=== PATIENT | female | born 1985 ===

== ENCOUNTER 2018-06-13 11:44 | Emergency (ER) | payer SELFPAY ==
[2018-06-13 13:50] LABS: SQUAMOUS EPITHIAL 1 /hpf (0-5); URINE BACTERIA OCC (<OCC); URINE BILIRUBIN NEGATIVE (NEGATIVE); URINE BLOOD NEGATIVE (NEGATIVE); URINE CLARITY Clear (Clear); URINE COLOR Straw (YELLOW); URINE GLUCOSE (UA) NORMAL (Normal); URINE LEUKOCYTE ESTERASE TRACE Leu/uL (Negative); URINE PROTEIN NEGATIVE (NEGATIVE); URINE UROBILINOGEN NORMAL mg/dL (0.2-1.0)
[2018-06-13 19:19] VITALS: BP 103/67; PULSE 81; RESP 20; TEMP 97.4
--- NOTE | 2018-06-14 08:20 | OBHP ---
Datetime: 06/13/2018 13:24 IP Chief Complaint Other: vaginal discharge, lower abdominal pain IP Adm Impression Other: yeast infection IP Admit Plan: Discharge home Admit Comment, IP Provider: Patient is vietnamese speaking, translation service provided by Lesley ID#[id number] . 33 year old female presents at 25.1 weeks gestation dated by LMP on 12/22/17. BRITTANIE is 09/28/18 . Patient presents for intermittent lower abdominal pain and vaginal pain that began 3-4 days ago. Pa in worsens with movement. Assoicated symptoms include vaginal itching and foul smelling, thick white discharge. She reports adequate movement. Denies vaginal bleeding, contractions, and rupture of membranes. She also mentions mild shortness of breath when lying down on her back at night for the p ast week. Shortness of breath improves with sitting up. Patient denies fever, chills, nausea, vomitin g, vaginal burning, urinary frequncy, dysuria, abdominal trauma, RUQ pain, chest pain, swelling. OB Hx:2017 in [place]- 6lb female by Csection due to oligohydramnios. No further complications re ported. 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 Denies previous pap. Denies hx of STD. Denies hx of fibroid or cysts. Reports sexually active during . PMHx: Thyroid cyst (removed) PSHx: 2016, Thyroid cyst removal 2006 Meds: none, previously taking vitamins but ran out Allergies: NKDA Family: Denies Social: Moved from [place] on May 23. Has not had PNC since moving to the [facility]. A_P: 33 year old female presents at 25.1 weeks gestation dated by LMP on 12/22/17 presents for v aginal discharge and lower abdominal pain. -UA -Vaginal culture -monitor FHT -discharge Dispo: Yeast infection, patient discharged with prescription for diflucan. Case discussed with Dr. Rubalcava. Ceci Yoder, PGY-1. Extremities - PN: Abnormal Abdomen - PN: Normal Back - PN: Normal Lungs - PN: Normal Heart - PN: Normal Neurologic - PN: Normal HEENT - PN: Normal FHR - Baseline A Provider: 150 Contraction Comments Provider: none Comments, ACOG Physical Exam: Heart: RRR, Normal S1, S2, No M/R/G Lungs: clear to auscultation bilaterally Abdomen: Non-tender, uterine fundus is at 20cm. Extremities: Trace LE pitting edema bilaterally. Non-tender to palpation. Pelvic: Thick white discharge noted. cervix is closed. There is not CMT. Gestation - Est Wks by US: 25.1 IP Hx Assessment: incomplete records, reviewed EGA AdmitDate IP: 24.5 Vital Signs Provider: Reviewed; Within Normal Limits IP Chief Complaint: Other NICHD Variability Prov Fetus A: Moderate 6-25bpm NICHD Accel Fetus A IP Provider: [id number] NICHD Decel Fetus A IP Provider: None Dilatation, Provider: 0 Effacement, Provider: 0 Genitourinary Exam: Abnormal
--- NOTE | 2018-06-14 08:22 | OBDCSUM ---
Datetime: 06/13/2018 14:34 Discharge Instructions, Provider: Routine instructions given Contraception discussed, Prov: Yes Disch Activity Restrictions: No sexual activity; Nothing in vagina - [place], tampons, douche Discharge Comment, Provider: Patient is arabic speaking, translation service provided by Lesley ID#[id number]. 33 year old female presents at 25.1 weeks gestation dated by LMP on 12/22/17. BRITTANIE is 9. Patient presents for intermittent lower abdominal pain and vaginal pain that began 3-4 days ago. P ain worsens with movement. Assoicated symptoms include vaginal itching and foul smelling, thick white discharge. She reports adequate movement. Denies vaginal bleeding, contractions, and rupture o f membranes. She also mentions mild shortness of breath when lying down on her back at night for the past week. Shortness of breath improves with sitting up. Patient denies fever, chills, nausea, vomiti ng, vaginal burning, urinary frequncy, dysuria, abdominal trauma, RUQ pain, chest pain, swelling. OB Hx:2017 in [place]- 6lb female by Csection due to oligohydramnios. No further complications re ported. 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 Denies previous pap. Denies hx of STD. Denies hx of fibroid or cysts. Reports sexually active during . PMHx: Thyroid cyst (removed) PSHx: 2017, Thyroid cyst removal 2006 Meds: none, previously taking vitamins but ran out Allergies: NKDA Family: Denies Social: Moved from [place] on May 23. Has not had PNC since moving to the [facility]. A_P: 33 year old female presents at 25.1 weeks gestation dated by LMP on 12/22/17 presents for v aginal discharge and lower abdominal pain. -UA -Vaginal culture -monitor FHT -discharge Dispo: Yeast infection, patient discharged with prescription for diflucan. Advised to increas po water intake Rx for PNV also given Left in S_S condition Discharge Diagnosis Prov Other: Heena Vaginitis Dehydration Contraception after Delivery: Undecided
== END 2018-06-13 14:41 | disposition home or self-care (01) ==
LOC: C.EROB 11:44
DX: O26.892 Other specified pregnancy related conditions, second trimester (principal); N89.8 Other specified noninflammatory disorders of vagina; R10.2 Pelvic and perineal pain; Z3A.25 25 weeks gestation of pregnancy